=== PATIENT | male | born 1935 | race Caucasian/White ===

== ENCOUNTER 2018-11-14 10:48 | Day surgery (SDC) | payer MEDICARE, BC ==
[2018-11-14] MEDS ORDERED: Lidocaine 2% 100 MG/5 ML Syringe IVPUSH ONE (10:49)
[2018-11-14] MEDS ORDERED: Propofol 200 MG/20 ML SDV IV ONE (10:49)
[2018-11-14] MEDS ORDERED: ePHEDrine 50 MG/ML SDV IV ONE (10:49)
[2018-11-14] MEDS ORDERED: Lactated Ringers 1,000 ML IV SCH (11:15)
[2018-11-14] MEDS ORDERED: Sodium Chloride 0.9% 10 ML Syringe FLUSH PRN (11:15)
--- NOTE | 2018-11-14 12:31 | PCM.PN ---
- General Info Date of Service: 11/14/18 - Review of Systems Systems Review Comment:: 82 y/o male with history of rectal pain and bleeding here for colonoscopy. He is medically stable to proceed. There has been no significant changes to his health status since his recent evaluation 2 days ago. I have again discussed the proposed colonoscopy with the patient. He agrees to proceed accepting risks. - Patient Data Vitals - Most Recent: Last Vital Signs Temp 98.6 F 11/14/18 11:27 Pulse 68 11/14/18 11:27 Resp 16 11/14/18 11:27 BP 130/71 11/14/18 11:27 Pulse Ox 98 11/14/18 11:27 Weight - Most Recent: 182 lb Med Orders - Current: Current Medications Lactated Ringer's (Ringers, Lactated) 1,000 mls @ 125 mls/hr IV ASDIRECTED RIOS Last Admin: 11/14/18 11:39 Dose: 125 mls/hr Sodium Chloride (Saline Flush) 10 ml FLUSH ASDIRECTED PRN PRN Reason: Keep Vein Open - Problem List Review Problem List Initiated/Reviewed/Updated: Yes - My Orders Last 24 Hours: My Active Orders 11/13/18 11:32 Resuscitation Status Routine 11/13/18 Dinner Nothing Per Oral Diet [DIET] 11/14/18 11:15 Patient Status [ADT] Routine Patient to Empty Bladder [RC] ASDIRECTED Verify Patient Consent Obtain [RC] ASDIRECTED Lactated Ringers [Ringers, Lactated] 1,000 ml IV ASDIRECTED Sodium Chloride 0.9% [Saline Flush] 10 ml FLUSH ASDIRECTED PRN Peripheral IV Insertion Adult [OM.PC] Routine - Assessment Assessment:: Rectal pain and bleeding - Plan Plan:: Colonoscopy
--- NOTE | 2018-11-14 13:19 | PCM.OPNOTE ---
- General Post-Op/Procedure Note Date of Surgery/Procedure: 11/14/18 Operative Procedure(s): Colonoscopy with Polypectomy and Biopsy Findings: Large Rectal Mass consistent with Rectal Cancer Multiple colon polyps Extensive Sigmoid Diverticulosis Pre Op Diagnosis: Rectal Bleeding Post-Op Diagnosis: Carcinoma of Rectum. Sigmoid Diverticulosis. Colon Polyps Anesthesia Technique: MAC Primary Surgeon: Rosas Decker Pathology: Biopsies of Rectal Mass Colon Polyps Output, Urine Amount: 0 EBL in mLs: 5 Complications: None Condition: Good
--- NOTE | 2018-11-14 17:07 | OR ---
DATE OF OPERATION: 11/14/2018 SURGEON: Rosas Decker MD PREOPERATIVE DIAGNOSIS: Rectal bleeding. POSTOPERATIVE DIAGNOSES: 1. Carcinoma of the rectum. 2. Sigmoid diverticulosis. 3. Colon polyps. OPERATION PERFORMED: Colonoscopy with polypectomy and biopsy. INDICATIONS FOR SURGERY: This 82-year-old male presents today for colonoscopy. He has recent symptoms of rectal pain and bleeding. FINDINGS: In the patient's rectum along the posterior wall, he has a large fungating hard ulcerated mass. It encompasses approximately 50% of the circumference of the colon on the posterior wall, it extends from the dentate line proximally about 6 cm. This is grossly consistent with a carcinoma. Multiple polyps are noted. There is a 5 mm sessile polyp in the rectum 10 cm from the anal verge, a 7 mm sessile polyp at the hepatic flexure and a 15 mm pedunculated polyp in the descending colon 45 cm from the anal verge. There is also extensive sigmoid diverticulosis, although this does not appear to be acutely inflamed, otherwise complicated. PROCEDURE IN DETAIL: The patient was taken to the procedure room. He was given intravenous sedation and digital rectal exam was performed. A firm irregular mass was noted along the posterior wall of the rectum on digital exam. The Olympus colonoscope was inserted into the rectum and the above-described rectal mass was identified. Multiple biopsies and photographs were taken of this mass. The small polyp in the rectum was also removed with a cautery snare. The scope was then advanced up to the descending colon where the larger polyp was identified. This was removed with a cautery snare and retrieved by holding the polyp on the end of the scope with suction and withdrawing the scope. The scope was then reinserted and carefully advanced under direct visualization through the entire length of the colon until the cecum was reached. Cecal acquisition was confirmed by noting normal internal cecal anatomy including the appendiceal orifice and ileocecal valve. After examining the cecum, the scope was slowly withdrawn and at the hepatic flexure, the above-described polyp was identified and removed with a cautery snare and retrieved. The exam was continued carefully examining the colon segments as the scope was withdrawn. Once the entire colon and rectum had been fully examined and with no sign of any complication, the scope was removed and the patient was taken from the procedure room in satisfactory condition. ESTIMATED BLOOD LOSS: 5 mL. COMPLICATIONS: None. PROGNOSIS: Good. /[id number]
== END 2018-11-14 14:25 | disposition home or self-care (01) ==
LOC: FB.SDS 10:48
PROVIDERS: ATTEND Surgery
DX: C20 Malignant neoplasm of rectum (principal); D12.4 Benign neoplasm of descending colon; D12.3 Benign neoplasm of transverse colon; K62.1 Rectal polyp; K57.30 Diverticulosis of large intestine without perforation or abscess without bleeding; I25.10 Atherosclerotic heart disease of native coronary artery without angina pectoris; Z95.1 Presence of aortocoronary bypass graft
CPT/HCPCS: 00812; 45380; 45385; 88305; J2001; J2704; J7120

== ENCOUNTER 2021-09-10 10:43 | Inpatient (IN) | payer MEDICARE, BC ==
[2021-09-10] MEDS ORDERED: Prochlorperazine 10 MG Tab PO PRN (16:05)
[2021-09-10] MEDS ORDERED: Ondansetron 8 MG Tab.DIS PO PRN (16:13)
[2021-09-10] MEDS ORDERED: PEG 400/Propylene Glycol Ophth Soln 15 ML Bottle EYEBOTH PRN (16:14)
[2021-09-10] MEDS ORDERED: Dexamethasone 4 MG Tab PO SCH (16:15)
[2021-09-10] MEDS: traMADol 50 MG Tab PO PRN (18:00)
[2021-09-11] MEDS: traMADol 50 MG Tab PO PRN (05:44)
[2021-09-11] MEDS: Lutein/Minerals/Vitamin C/Vitamin E Acetate Cap PO SCH (08:25)
[2021-09-11] MEDS: Enoxaparin 40 MG/0.4 ML Syringe SUBCUT SCH (08:25)
[2021-09-12] MEDS: traMADol 50 MG Tab PO PRN ×2 (01:10→08:16)
[2021-09-12] MEDS: Lutein/Minerals/Vitamin C/Vitamin E Acetate Cap PO SCH (08:18)
[2021-09-12] MEDS: Enoxaparin 40 MG/0.4 ML Syringe SUBCUT SCH (08:18)
[2021-09-12] MEDS: Acetaminophen 325 MG Tab PO PRN (22:44)
[2021-09-13] MEDS: Enoxaparin 40 MG/0.4 ML Syringe SUBCUT SCH (09:00)
[2021-09-13] MEDS: Lutein/Minerals/Vitamin C/Vitamin E Acetate Cap PO SCH (09:00)
[2021-09-13] MEDS: Acetaminophen 325 MG Tab PO PRN ×2 (14:16→22:08)
[2021-09-14 08:07] LABS: ESTIMATED GFR 67 mL/min (>60)
[2021-09-14] MEDS: Enoxaparin 40 MG/0.4 ML Syringe SUBCUT SCH (08:45)
[2021-09-14] MEDS: Lutein/Minerals/Vitamin C/Vitamin E Acetate Cap PO SCH (08:45)
[2021-09-14] MEDS: Acetaminophen 325 MG Tab PO PRN ×2 (12:06→21:44)
[2021-09-15] MEDS: Lutein/Minerals/Vitamin C/Vitamin E Acetate Cap PO SCH (08:40)
[2021-09-15] MEDS: Enoxaparin 40 MG/0.4 ML Syringe SUBCUT SCH (08:41)
[2021-09-15] MEDS: Triamcinolone Acetonide 0.1% Crm 15 GM Tube TOP SCH ×2 (09:51→20:11)
[2021-09-16] MEDS: Acetaminophen 325 MG Tab PO PRN ×2 (08:16→18:29)
[2021-09-16] MEDS: Triamcinolone Acetonide 0.1% Crm 15 GM Tube TOP SCH ×2 (08:17→20:13)
[2021-09-16] MEDS: Lutein/Minerals/Vitamin C/Vitamin E Acetate Cap PO SCH (08:17)
[2021-09-16] MEDS: Enoxaparin 40 MG/0.4 ML Syringe SUBCUT SCH (08:17)
[2021-09-16] MEDS ORDERED: Iopamidol 755 Mg/ML 75 ML Bottle IV ONE (08:45)
[2021-09-16 09:02] LABS: ESTIMATED GFR 67 mL/min (>60)
[2021-09-17] MEDS: Acetaminophen 325 MG Tab PO PRN ×2 (06:38→20:25)
[2021-09-17] MEDS: Lutein/Minerals/Vitamin C/Vitamin E Acetate Cap PO SCH (08:28)
[2021-09-17] MEDS: Enoxaparin 40 MG/0.4 ML Syringe SUBCUT SCH (08:28)
[2021-09-17] MEDS: Triamcinolone Acetonide 0.1% Crm 15 GM Tube TOP SCH ×2 (08:29→21:35)
[2021-09-18 06:38] LABS: ESTIMATED GFR 85 mL/min (>60)
[2021-09-18] MEDS: Enoxaparin 40 MG/0.4 ML Syringe SUBCUT SCH (08:53)
[2021-09-18] MEDS: Lutein/Minerals/Vitamin C/Vitamin E Acetate Cap PO SCH (08:53)
[2021-09-18] MEDS: Triamcinolone Acetonide 0.1% Crm 15 GM Tube TOP SCH (08:53)
[2021-09-18] MEDS ORDERED: Iopamidol 755 Mg/ML 75 ML Bottle IV ONE (09:14)
[2021-09-18] MEDS: traMADol 50 MG Tab PO PRN (13:38)
== END 2021-09-18 14:20 | disposition home health service (06) | DRG 948 ==
LOC: FB.MS 14:17 → UNDOADMIN 14:17 → FB.MS 14:20
PROVIDERS: ADMIT Family Medicine; ATTEND Family Medicine
DX: R53.1 Weakness (principal); I48.92 Unspecified atrial flutter; C20 Malignant neoplasm of rectum; I50.32 Chronic diastolic (congestive) heart failure; I11.0 Hypertensive heart disease with heart failure; I25.10 Atherosclerotic heart disease of native coronary artery without angina pectoris; E03.9 Hypothyroidism, unspecified; Z90.49 Acquired absence of other specified parts of digestive tract; Z79.899 Other long term (current) drug therapy; H54.7 Unspecified visual loss; H91.90 Unspecified hearing loss, unspecified ear; E78.00 Pure hypercholesterolemia, unspecified; Z86.010 Personal history of colon polyps; M19.90 Unspecified osteoarthritis, unspecified site; Z85.038 Personal history of other malignant neoplasm of large intestine; Z85.46 Personal history of malignant neoplasm of prostate; Z98.49 Cataract extraction status, unspecified eye; Z93.3 Colostomy status
CPT/HCPCS: 36415; 74177; 80053; 81001; 83605; 85025; 86140; 87040; 94150; 97110-GO; 97110-GP; 97116-GP; 97161-GP; 97165-GO; 97530-GO; 97535-GO; A9270-GY; J1650; Q9967